=== PATIENT | male | born 1960 | race Caucasian/White ===

== ENCOUNTER 2021-05-22 17:09 | Inpatient (IN) | payer BC, SELFPAY ==
[~2021-05-22] VITALS: Ht 170.2 cm; Wt 103.9 kg
[2021-05-22 17:09] VITALS: BP_SYST 154
--- NOTE | 2021-05-22 17:10 | NUR ---
Patient to ER bed 08 to gown for evaluation. Side rails up.
--- NOTE | 2021-05-22 17:15 | NUR ---
Pt bib EMS after being found knocking on people's doors and PD was called. Pt appears to be intoxicated, states he drank last night, tequile and orange juice. Pt is tachy upon arrival. Other v/s stable, no acute distress noted.
[2021-05-22] MEDS ORDERED: ASPIRIN 81 MG TAB.CHEW PO ONE ×2 (17:30→21:00)
[2021-05-22] MEDS ORDERED: NACL 0.9% 1,000 ML IV ONE ×2 (17:30→19:00)
[2021-05-22 18:19] LABS: BASOPHILS % (AUTO) 0.3 % (0.0-2.0); EOSINOPHILS % (AUTO) 0.4 % (0.0-4.0); HEMATOCRIT 39.5 % (36-54); HEMOGLOBIN 13.8 g/dL (14.0-18.0); LYMPHOCYTES % (AUTO) 11.8 % (20.5-51.5); MEAN CORPUSCULAR HEMOGLOBIN 31 pg (27-31); MEAN CORPUSCULAR HGB CONC 35 % (32-36); MEAN CORPUSCULAR VOLUME 88 fL (79.0-98.0); MONOCYTES # (AUTO) 0.6 K/uL (0.0-1.0); MONOCYTES % (AUTO) 7.6 % (1.7-9.3); NEUTROPHILS # (AUTO) 6.6 K/uL (1.8-7.7); NEUTROPHILS % (AUTO) 79.9 % (40.0-70.0); PLATELET COUNT (AUTO) 146 K/uL (130-430); RED BLOOD CELL COUNT(AUTO) 4.49 MIL/uL (4.2-6.2); RED CELL DISTRIBUTION WIDTH 12.9 % (9.0-15.0); WHITE BLOOD COUNT (AUTO) 8.3 K/uL (4.8-10.8)
--- NOTE | 2021-05-22 18:35 | NUR ---
ER Dr. Trujillo at bedside examining patient.
[2021-05-22 18:37] LABS: CALCIUM 8.6 mg/dL (8.4-11.0); CREATININE 1.06 mg/dL (0.55-1.30); POTASSIUM 3.5 mmol/L (3.5-5.1)
[2021-05-22 18:44] LABS: ALBUMIN 3.4 g/dL (3.4-4.8); TOTAL BILIRUBIN 0.7 mg/dL (0.0-1.0)
--- NOTE | 2021-05-22 18:55 | NUR ---
# 20 gauge angiocath placed to RAC. Use of asceptic technique. Opsite placed over site. Blood return noted. Flushed with 10 cc of normal saline. No evidence of infiltration noted. Patient tolerated well.
--- NOTE | 2021-05-22 19:10 | NUR ---
Care of patient endorsed to RAHEEL Cummings. Pt currently resting in bed, no acute distress noted.
--- NOTE | 2021-05-22 19:11 | NUR ---
Received endorsement from day shift, AAOX2, with lucid interval, drowsy, breathing spontaneously at room air, with ongoing IV fluid with 0.9% Normal Saline 1L infusing well at right forearm, g20 IV cannula noted, patent. Vitals taken, mild tachypneic HR- 110bpm.
--- NOTE | 2021-05-22 20:14 | NUR ---
PIV REMOVED BY PATIENT. BLEEDING CONTROLLED. ASSISTED BACK TO BED AND GIVEN URINAL. # 18 gauge angiocath placed to LEFT FOREARM. Use of asceptic technique. Opsite placed over site. Blood return noted. Flushed with 10 cc of normal saline. No evidence of infiltration noted. Patient tolerated well.
[2021-05-22 20:39] LABS: BILIRUBIN,URINE NEGATIVE (NEGATIVE); BLOOD, URINE 1+ (NEGATIVE); CLARITY/URINE CLEAR (CLEAR); GLUCOSE,URINE TRACE (NEGATIVE); KETONES,URINE 1+ (NEGATIVE); LEUKOCYTE ESTERASE ,URINE NEGATIVE (NEGATIVE); NITRITE, URINE NEGATIVE (NEGATIVE); PROTEIN URINE 1+ (NEGATIVE)
[2021-05-22 20:47] LABS: COLOR,URINE AMBER (YELLOW)
[2021-05-22 20:52] LABS: BARBITURATE, URINE NEGATIVE (NEG <=200); BENZODIAZEPINE, URINE POSITIVE (NEG <=150); CANNABINOID, URINE NEGATIVE (NEG <=50); COCAINE, URINE NEGATIVE (NEG <=150); METHAMPHETAMINES SCREEN,URINE NEGATIVE (NEG <=500); OPIATE, URINE NEGATIVE (NEG <=100); PHENCYCLIDINE SCREEN,URINE NEGATIVE (NEG <=25); UR TRICYCLIC ANTIDEPRESSANTS NEGATIVE (NEG <=300); URINE AMPHETAMINE NEGATIVE (NEG <=500); URINE METHADONE NEGATIVE (NEG <=200); URINE OXYCODONE SCREEN NEGATIVE (NEG <=100); URINE PROPOXYPHENE SCREEN NEGATIVE (NEG <=300)
--- NOTE | 2021-05-22 20:52 | NUR ---
Patient transported to radiology via wheelchair, accompanied by gi technician in stable condition.
[2021-05-22 20:58] LABS: BACTERIA,URINE RARE /HPF (None Seen); CALCIUM OXALATE CRYSTALS,UR None Seen /HPF (None Seen); CALCIUM PHOSPHATE CRYSTALS,UR None Seen /HPF (None Seen); COARSE GRANULAR CASTS,URINE None Seen /LPF (None Seen); FINE GRANULAR CASTS,URINE None Seen /LPF (None Seen); HYALINE CASTS, URINE None Seen /LPF (None Seen); MUCUS,URINE None Seen /LPF (None Seen); OTHER CASTS, URINE None Seen /LPF (None Seen); OTHER CRYSTALS,URINE None Seen /HPF (None Seen); RBC,URINE 0-3 /HPF (0-3); TRICHOMONAS,URINE None Seen /HPF (None Seen); TRIPLE PHOSPHATE CRYSTAL,UR None Seen /HPF (None Seen); URIC ACID CRYSTALS,URINE None Seen /HPF (None Seen); URINE AMORPHOUS PHOSPHATES None Seen /HPF (None Seen); URINE AMORPHOUS URATE None Seen /HPF (None Seen); WAXY CASTS,URINE None Seen /LPF (None Seen); WBC,URINE 0-3 /HPF (0-3); YEAST,URINE None Seen /HPF (None Seen)
--- NOTE | 2021-05-22 21:10 | NUR ---
Returned from radiology, back to [facility]. computer technician at bedside, blood drawn for repeat troponin
--- NOTE | 2021-05-22 22:06 | NUR ---
COVID SWAB COLLECTED AND SENT TO LAB.
--- NOTE | 2021-05-22 22:10 | NUR ---
Patient's code status is FULL CODE, paperwork completed and placed in chart.
--- NOTE | 2021-05-22 22:19 | NUR ---
Patient will be admitted to care of Dr. Billingsley as a case of Altered LOC and Elevated Troponin. Admitted to Telemetry unit. Will go to room pending. Belongings list completed. Complete and up to date summary report printed. SBAR report to be given at bedside with opportunity for questions.
--- NOTE | 2021-05-22 22:34 | NUR ---
Patient offered to put his money on safe but he wants to keep it and signed the form.
[2021-05-22] MEDS ORDERED: ALLO100T PO (22:40)
--- NOTE | 2021-05-22 22:40 | NUR ---
Medication reconciliation completed with information provided by the patient, cannot remember his antihypertensive medication. Any prior medication reconciliation on file was reviewed and corrected.
--- NOTE | 2021-05-22 22:58 | NUR ---
Transfer to Telemetry 104B via ACLS protocol. Licensed nurse present. IV present no signs or symptoms of infiltration.
[2021-05-22] MEDS ORDERED: ALBUTEROL SULFATE 0.083% 2.5 MG/3 ML VIAL.NEB INH PRN (23:00)
[2021-05-22] MEDS ORDERED: NALOXONE HCL 0.4 MG/ML AMP (NARCAN) IVP PRN ×2 (23:00)
[2021-05-22] MEDS ORDERED: IPRATROPIUM BROM 0.5 MG/2.5 ML VIAL.NEB (ATROVENT) INH PRN (23:00)
[2021-05-22] MEDS ORDERED: LORazepam 2 MG/ML VIAL IVP PRN (23:00)
[2021-05-22] MEDS ORDERED: ONDANSETRON HCL 4 MG/2 ML VIAL IVP PRN (23:00)
[2021-05-22] MEDS ORDERED: ACETAMINOPHEN 325 MG TABLET PO PRN (23:00)
[2021-05-22] MEDS ORDERED: HYDROcodone/ACETAMIN 5-325 MG TAB (NORCO/ VICODIN) PO PRN (23:00)
[2021-05-22] MEDS ORDERED: HYDROcodone/ACETAMIN 10-325 MG TAB PO PRN (23:00)
--- NOTE | 2021-05-22 23:09 | NUR ---
ADMIT NOTE Received pt from ER to the floor with a diagnosis of ALOC, Elevated Troponin. Admission process initiated. Patient oriented to pain management, safety and call light-teach back done.
--- NOTE | 2021-05-22 23:15 | NUR ---
Endorsed to predatory animal hunter Raquel in stable condition for continuity of care.
[2021-05-22 23:30] VITALS: BP_SYST 128
--- NOTE | 2021-05-22 23:30 | NUR ---
Initial RN notes Received pt from ED. Pt AAOx2-3, VSS, afebrile. No c/o pain. IV saline locked L. FA. Pt ambulated to the bathroom and voided, steady gait. HS snacks given per pt request. Oriented to surrounding/call light use. Bed low, locked, siderails up x2, alarm on. Call light/urinal within reach. To monitor.
[2021-05-23 01:09] VITALS: BP_SYST 128
[2021-05-23] MEDS: NORMAL SALINE 5 ML DISP.SYRIN IVF SCH ×3 (05:59→22:51)
[2021-05-23] MEDS ORDERED: NORMAL SALINE 5 ML DISP.SYRIN IVF SCH (06:00)
--- NOTE | 2021-05-23 06:10 | NUR ---
Closing notes Pt asleep, easily awakens. No s/s distress noted. IV L. FA saline locked clear and patent. Call light within reach. Bed low, locked, siderails up x3. Safety maintained. To endorse to AM nurse.
[2021-05-23 06:30] LABS: BASOPHILS % (AUTO) 0.3 % (0.0-2.0); EOSINOPHILS # (AUTO) 0.1 K/uL (0.0-0.4); HEMATOCRIT 35.7 % (36-54); HEMOGLOBIN 12.5 g/dL (14.0-18.0); LYMPHOCYTES # (AUTO) 1.7 K/uL (1.0-5.5); LYMPHOCYTES % (AUTO) 28.1 % (20.5-51.5); MEAN CORPUSCULAR HEMOGLOBIN 31 pg (27-31); MEAN CORPUSCULAR HGB CONC 35 % (32-36); MEAN CORPUSCULAR VOLUME 89 fL (79.0-98.0); MONOCYTES # (AUTO) 0.8 K/uL (0.0-1.0); MONOCYTES % (AUTO) 12.8 % (1.7-9.3); NEUTROPHILS # (AUTO) 3.5 K/uL (1.8-7.7); NEUTROPHILS % (AUTO) 57.8 % (40.0-70.0); PLATELET COUNT (AUTO) 121 K/uL (130-430); RED BLOOD CELL COUNT(AUTO) 4.03 MIL/uL (4.2-6.2); RED CELL DISTRIBUTION WIDTH 13.2 % (9.0-15.0); WHITE BLOOD COUNT (AUTO) 6.1 K/uL (4.8-10.8)
[2021-05-23 06:39] LABS: CALCIUM 7.8 mg/dL (8.4-11.0); CREATININE 0.77 mg/dL (0.55-1.30); PHOSPHORUS 1.9 mg/dL (2.7-4.5); POTASSIUM 3.7 mmol/L (3.5-5.1)
--- NOTE | 2021-05-23 07:12 | NUR ---
CONSULTATION PAGED/CALLED Reason for Consultation: [] elevated trop Person Who was Notified: [ mike Consulting Physician: [] DR Julissa ARENAS Therapist Phys Specialty: [] CARDIO Ordering Physician: [] DR Gadiel ARENAS
[2021-05-23 08:07] VITALS: BP_SYST 139
[2021-05-23] MEDS: ALLOPURINOL 100 MG TABLET (ZYLOPRIM) PO SCH (08:10)
--- NOTE | 2021-05-23 08:10 | NUR ---
Alert/oriented x4 denies any chest pain , ambulate with steady , discussed plan of care reason for consult and verbnalized understanding.
--- NOTE | 2021-05-23 08:58 | NUR ---
CONSULTATION PAGED/CALLED Reason for Consultation: [] AMS Person Who was Notified: [] DR HANDY Consulting Physician: [] DR HANDY Arm Rest Builder Specialty: [] NEURO Ordering Physician: [] DR Gadiel ARENAS
--- NOTE | 2021-05-23 11:18 | NUR ---
Ambulate with steady gait alert/oriented x4 , needs attended.
[2021-05-23 12:13] VITALS: BP_SYST 145
--- NOTE | 2021-05-23 16:01 | NUR ---
Discussed to patient lab result cardiac enzymes trending down the numbers , denies any chest pain, needs attended.
[2021-05-23 16:41] VITALS: BP_SYST 126
--- NOTE | 2021-05-23 17:18 | NUR ---
Seen and examined by the builder's labourer Dr. Jose Cruz Steven denies any chest pain.
--- NOTE | 2021-05-23 18:25 | NUR ---
Cleared for discharged from cardiac standpoint , waiting for neurologist to see the patient
--- NOTE | 2021-05-23 19:30 | NUR ---
Opening notes Received report. Patient is resting comfortably in bed, no signs of distress noted. Breathing even and unlabored. No complaints of pain at this time. IV patent and intact, no signs of infiltration noted. No needs at this time. Call light with the patient. safety precautions in place.
[2021-05-23 20:00] VITALS: BP_SYST 124
[2021-05-24 01:31] VITALS: BP_SYST 147
--- NOTE | 2021-05-24 02:21 | NUR ---
RN rounds Patient resting in bed, no signs of distress noted. Breathing even and unlabored on room air. Patient previously ambulated to bathroom to void, patient with steady gait. Provided patient with water. No other needs. Call light with the patient. Safety precautions in place.
[2021-05-24] MEDS: NORMAL SALINE 5 ML DISP.SYRIN IVF SCH (06:46)
--- NOTE | 2021-05-24 07:00 | NUR ---
Dr. Kenisha Hart seen and examined patient. Addendum: 05/24/21 at 0708 by Roxane Talamantes RN Informed MD of patient discharge, pending neuro clearance.
--- NOTE | 2021-05-24 07:06 | NUR ---
Closing notes Patient is resting in bed, no signs of distress noted. Breathing even and unlabored on room air. IV patent and intact, no signs of infiltration noted. All needs met throughout the shift. Call light with the patient. Safety precautions in place.
[2021-05-24 08:00] VITALS: BP_SYST 150
--- NOTE | 2021-05-24 08:00 | NUR ---
OPENING NOTES AWAKE, ALERT AND ORIENTED. NO SHORTNESS OF BREATH ON ROOM AIR. DENIES ANY PAIN. FOR DISCHARGE, WAITING FOR NEURO CLEARANCE. DR. HANDY IS STILL MAKING ROUNDS, PATIENT VERBALIZED UNDERSTANDING. FALL AND SAFETY CHECKS DONE. CALL LIGHT WITHIN REACH. WILL CONTINUE TO MONITOR.
--- NOTE | 2021-05-24 09:30 | NUR ---
TALKED TO FAMILY WAS UPDATED WITH PATIENT'S CONDITION. SHE SAID THAT A FRIEND WILL COME CUT IN STATION OPERATOR HER WHEN DISCHARGED. STILL WAITING FOR DISCHARGE ORDER FROM DR. HANDY.
[2021-05-24] MEDS: ALLOPURINOL 100 MG TABLET (ZYLOPRIM) PO SCH (09:50)
[2021-05-24] MEDS ORDERED: HYDROCHLOROTHIAZIDE 25 MG TABLET (HCTZ) PO ONE (11:15)
--- NOTE | 2021-05-24 11:20 | NUR ---
MEDICATED DR. ARNEAS ORDERED FOR HYDROCHLOROTHIAZIDE.
[2021-05-24 12:00] VITALS: BP_SYST 165
--- NOTE | 2021-05-24 12:00 | NUR ---
INCREASED BLOOD PRESSURE TAKEN BY MS. HAY RN. PAGED DR. ARENAS. Addendum: 05/24/21 at 1620 by Juanita Rod RN TIME [id number]
[2021-05-24] MEDS ORDERED: lisinopriL 20 MG TABLET PO ONE (12:30)
--- NOTE | 2021-05-24 13:00 | NUR ---
BLOOD PRESSURE STILL HIGH RE-CHECKED 165/93mmHg. PAGED DR. ARENAS. ORDERED FOR ANOTHER BLOOD PRESSURE MEDICATION. ADMINISTERED.
[2021-05-24 14:20] VITALS: BP_SYST 154
[2021-05-24 14:27] VITALS: BP_SYST 154
== END 2021-05-24 15:00 | disposition home or self-care (01) | DRG 897 ==
LOC: SED 17:09 → STU 22:18
PROVIDERS: ADMIT Preventive Medicine Preventive Medicine/Occupational Environmental Medicine; ATTEND Preventive Medicine Preventive Medicine/Occupational Environmental Medicine
DX: F10.129 Alcohol abuse with intoxication, unspecified (principal); E11.9 Type 2 diabetes mellitus without complications; E78.00 Pure hypercholesterolemia, unspecified; Z20.822 Contact with and (suspected) exposure to COVID-19; E78.5 Hyperlipidemia, unspecified; I10 Essential (primary) hypertension; M10.9 Gout, unspecified; Z79.899 Other long term (current) drug therapy
CPT/HCPCS: 36415; 70450-TC; 71045; 76376; 80048; 80053; 80307; 81000; 82962; 83735; 83880; 84100; 84484; 85025; 85610-TC; 85730-TC; 93005; 93306; 96360; 96361; 99285; G0378; G0482